=== PATIENT | male | born 1940 | race Caucasian/White ===

== ENCOUNTER → 2018-01-22 | Outpatient (CLI) | payer MEDICARE ==
[~2018-01-22] MED LIST: APIX5TAB PO; ATOR40TA78 PO; DILT240C77 PO; Digoxin PO; HYDR-3245 PO
[2018-01-22 11:53] LABS: BASOPHILS # (AUTO) 0.05 x10^3/uL (0-0.1); BASOPHILS % (AUTO) 1 % (0-1); EOSINOPHILS # (AUTO) 0.24 x10^3/uL (0-0.4); EOSINOPHILS % (AUTO) 3 % (1-7); LYMPHOCYTES # (AUTO) 2.42 x10^3/uL (1-3.4); LYMPHOCYTES % (AUTO) 25 % (22-44); MD NO; MEAN CORPUSCULAR HEMOGLOBIN 32.8 pg (27.5-34.5); MEAN CORPUSCULAR HGB CONC 34.3 g/dL (33.2-36.2); MEAN CORPUSCULAR VOLUME 95.7 fL (81-97); MEAN PLATELET VOLUME 8.7 fL (7.4-10.4); MONOCYTES # (AUTO) 0.92 x10^3/uL (0.2-0.8); MONOCYTES % (AUTO) 10 % (2-9); NEUTROPHILS % (AUTO) 62 % (42-75); PLATELET COUNT 173 x10^3/uL (130-400); RED BLOOD COUNT 5.18 x10^6/uL (4.38-5.82); RED CELL DISTRIBUTION WIDTH 13.8 % (9.4-14.8)
[2018-01-22 12:01] LABS: CHLORIDE 106 mmol/L (98-107)
[2018-01-22 12:14] LABS: ALANINE AMINOTRANSFERASE 40 U/L (12-78); ALBUMIN 3.9 g/dL (3.4-5.0); ALKALINE PHOSPHATASE 81 U/L (45-117); ANION GAP 9 mmol/L (5-15); BILIRUBIN,TOTAL 0.9 mg/dL (0.2-1.0); CALCIUM 8.5 mg/dL (8.5-10.1); CREATININE 0.79 mg/dL (0.7-1.3); TOTAL PROTEIN 7.6 g/dL (6.4-8.2)
== END | disposition home or self-care (01) ==
LOC: STAR 10:38
PROVIDERS: ATTEND Surgery
DX: Z01.818 Encounter for other preprocedural examination (principal); I48.91 Unspecified atrial fibrillation; I71.4 Abdominal aortic aneurysm, without rupture; I25.2 Old myocardial infarction
CPT/HCPCS: 36415; 80053; 85025; 93005

== ENCOUNTER → 2018-04-17 | Outpatient (CLI) | payer MEDICARE ==
[~2018-04-17] MED LIST changes: +ASPI81TA45 PO; +CARV6.2512 PO; +CIPR500T87 PO; +DIGO250T PO; +LISI5TAB7 PO; +OMNIPAQUE 350 MG/ML, 150 ML BOTTLE ONE; +TAMS-11 PO
[2018-04-17 14:28] LABS: CREATININE 1.78 mg/dL (0.7-1.3)
== END | disposition home or self-care (01) ==
LOC: RAD 13:37
PROVIDERS: ATTEND Surgery
DX: I71.4 Abdominal aortic aneurysm, without rupture (principal); J90 Pleural effusion, not elsewhere classified; K57.30 Diverticulosis of large intestine without perforation or abscess without bleeding; N28.1 Cyst of kidney, acquired; J98.11 Atelectasis
CPT/HCPCS: 36415; 75635; 82565; Q9967

== ENCOUNTER 2018-04-22 13:33 | Inpatient (IN) | payer MEDICARE ==
[~2018-04-22] VITALS: Ht 170.2 cm; Wt 84.3 kg
[~2018-04-22 13:33] MED LIST changes: -OMNIPAQUE 350 MG/ML, 150 ML BOTTLE ONE
--- NOTE | 2018-04-22 13:52 | NUR ---
PT REPORTS BEING SOB, BEING WEAK, YESTERDAY PT FELL AND HIT HEAD ON THE WALL WHILE GETTING ON THE TOILET YESTERDAY (HEMATOMA ON LEFT FOREHEAD) DENIES LOSS OF CONSCIOUSNESS. REPORTS THAT HE HAS A COLD AND HAS BACK PAIN. PT IS CONNECTED TO THE MONITOR. CALL LIGHT WITHIN REACH. AT BEDSIDE.
--- NOTE | 2018-04-22 14:13 | NUR ---
IV PLACED, BLOOD DRAWN AND SENT TO THE LAB. IV FLUIDS RUNNING.
[2018-04-22 14:19] LABS: BASOPHILS # (AUTO) 0.02 x10^3/uL (0-0.1); BASOPHILS % (AUTO) 0 % (0-1); EOSINOPHILS # (AUTO) 0.16 x10^3/uL (0-0.4); EOSINOPHILS % (AUTO) 4 % (1-7); LYMPHOCYTES # (AUTO) 1.13 x10^3/uL (1-3.4); LYMPHOCYTES % (AUTO) 24 % (22-44); MD NO; MEAN CORPUSCULAR HEMOGLOBIN 30.4 pg (27.5-34.5); MEAN CORPUSCULAR HGB CONC 32.4 g/dL (33.2-36.2); MEAN CORPUSCULAR VOLUME 93.8 fL (81-97); MEAN PLATELET VOLUME 8.9 fL (7.4-10.4); MONOCYTES # (AUTO) 0.69 x10^3/uL (0.2-0.8); MONOCYTES % (AUTO) 15 % (2-9); NEUTROPHILS # (AUTO) 2.69 x10^3/uL (1.8-6.8); NEUTROPHILS % (AUTO) 57 % (42-75); PLATELET COUNT 163 x10^3/uL (130-400); RED BLOOD COUNT 3.37 x10^6/uL (4.38-5.82); RED CELL DISTRIBUTION WIDTH 18.1 % (9.4-14.8)
[2018-04-22 14:29] LABS: ALANINE AMINOTRANSFERASE 35 U/L (12-78); ALBUMIN 3.5 g/dL (3.4-5.0); ANION GAP 9 mmol/L (5-15); CALCIUM 8.6 mg/dL (8.5-10.1); CHLORIDE 106 mmol/L (98-107); INTERNATIONAL NORMALIZED RATIO 1.35 (0.93-1.1)
[2018-04-22] MEDS ORDERED: SODIUM CHLORIDE FLUSH 10ML SYR IVF ONE (14:30)
[2018-04-22] MEDS ORDERED: SODIUM CHLORIDE 0.9% 1,000ML IVBOLUS ONE ×2 (14:30→15:00)
[2018-04-22 14:34] LABS: ALKALINE PHOSPHATASE 93 U/L (45-117); BILIRUBIN,TOTAL 0.6 mg/dL (0.2-1.0); CREATININE 1.94 mg/dL (0.7-1.3)
--- NOTE | 2018-04-22 14:57 | NUR ---
INFORMED MD AFTER 1L NS PTS BP IS 89/66, HR RANGING FROM 110 TO 132. PER MD GIVEN PT 1MORE LITER OF NS.
--- NOTE | 2018-04-22 16:12 | NUR ---
HOSPITALIST AT BEDSIDE.
[2018-04-22] MEDS ORDERED: hydrALAzine 20 MG/ML, 1ML IVPush PRN (16:30)
[2018-04-22] MEDS ORDERED: PHARMACY MAY ADJ FOR RENAL FX MC PRN (16:30)
[2018-04-22] MEDS ORDERED: BISACODYL 10 MG SUPP PR PRN (16:30)
[2018-04-22] MEDS ORDERED: ACETAMINOPHEN 325 MG TABLET PO PRN (16:30)
--- NOTE | 2018-04-22 16:30 | NUR ---
DR LOPEZ AWARE OF IMPROVED BLOOD PRESSURE AND LABETOLOL TO BE HELD AT THIS TIME
--- NOTE | 2018-04-22 17:00 | NUR ---
REPORT GIVEN TO YI AMATO.
[2018-04-22 17:06] LABS: TROPONIN I 0.235 ng/mL (0.000-0.045)
[2018-04-22 17:11] LABS: HEMOGLOBIN A1C 6.5 % (4.2-6.3)
[2018-04-22] MEDS ORDERED: ALBUTEROL/IPRATROPIUM 2.5MG/0.5MG, 3 ML ONE (17:12)
[2018-04-22] MEDS: ALBUTEROL/IPRATROPIUM 2.5MG/0.5MG, 3 ML NPPB SCH (17:26)
[2018-04-22 17:34] VITALS: BP 91/61
[2018-04-22] MEDS ORDERED: CARVEDILOL 6.25 MG TABLET PO SCH (18:00)
[2018-04-22 18:51] VITALS: BP 105/73
[2018-04-22 19:45] LABS: MICROSCOPIC INDICATED
[2018-04-22 19:58] LABS: CULTURE INDICATED? NO
[2018-04-22] MEDS ORDERED: POTASSIUM CHLORIDE 10 MEQ TABLET.ER PO ONE (20:00)
[2018-04-22] MEDS ORDERED: FUROSEMIDE 40 MG/4 ML IV ONE (20:00)
[2018-04-22] MEDS: APIXABAN 2.5 MG TABLET PO SCH (20:07)
[2018-04-22] MEDS: ATORVASTATIN 40 MG TABLET PO SCH (20:08)
[2018-04-22] MEDS ORDERED: FUROSEMIDE 20 MG TABLET PO SCH (21:00)
[2018-04-22 22:57] LABS: TROPONIN I 0.226 ng/mL (0.000-0.045)
[2018-04-23] VITALS (11 sets, daily range): BP systolic 75–103; BP diastolic 33–73
[2018-04-23] MEDS: ASPIRIN 81 MG TABLET EC PO SCH (05:30)
[2018-04-23 06:04] LABS: BASOPHILS # (AUTO) 0.02 x10^3/uL (0-0.1); BASOPHILS % (AUTO) 0 % (0-1); EOSINOPHILS % (AUTO) 4 % (1-7); LYMPHOCYTES # (AUTO) 1.72 x10^3/uL (1-3.4); LYMPHOCYTES % (AUTO) 35 % (22-44); MD NO; MEAN CORPUSCULAR HEMOGLOBIN 31.4 pg (27.5-34.5); MEAN CORPUSCULAR HGB CONC 33.4 g/dL (33.2-36.2); MEAN CORPUSCULAR VOLUME 94.2 fL (81-97); MEAN PLATELET VOLUME 9.1 fL (7.4-10.4); MONOCYTES # (AUTO) 0.74 x10^3/uL (0.2-0.8); MONOCYTES % (AUTO) 15 % (2-9); NEUTROPHILS # (AUTO) 2.22 x10^3/uL (1.8-6.8); NEUTROPHILS % (AUTO) 45 % (42-75); PLATELET COUNT 135 x10^3/uL (130-400); RED BLOOD COUNT 2.77 x10^6/uL (4.38-5.82); RED CELL DISTRIBUTION WIDTH 17.7 % (9.4-14.8)
[2018-04-23 06:09] LABS: ALANINE AMINOTRANSFERASE 42 U/L (12-78); ALBUMIN 2.7 g/dL (3.4-5.0); ANION GAP 8 mmol/L (5-15); CHLORIDE 106 mmol/L (98-107); CREATININE 1.63 mg/dL (0.7-1.3)
[2018-04-23 06:13] LABS: ALKALINE PHOSPHATASE 86 U/L (45-117); BILIRUBIN,TOTAL 0.5 mg/dL (0.2-1.0); CHOLESTEROL, TOTAL 98 mg/dL (140-239); HDL CHOL % 34 % (26-37); HDL CHOLESTEROL (DIRECT) 33 mg/dL (40-60); LDL CHOLESTEROL,CALCULATED 43 mg/dL (54-169); LDL/HDL RATIO 1.3 (0.5-3.0); TOTAL PROTEIN 5.7 g/dL (6.4-8.2); TRIGLYCERIDES 112 mg/dL (50-200); VLDL CHOLESTEROL 22 mg/dL (0-25)
[2018-04-23] MEDS: ALBUTEROL/IPRATROPIUM 2.5MG/0.5MG, 3 ML NPPB SCH ×4 (07:49→20:00)
[2018-04-23] MEDS: FUROSEMIDE 20 MG/2 ML IV SCH ×2 (08:00→09:00)
[2018-04-23] MEDS: APIXABAN 2.5 MG TABLET PO SCH ×2 (08:32→22:02)
[2018-04-23] MEDS ORDERED: AMIODARONE 150 MG in DEXTROSE 5% 100 ML IV ONE (13:00)
[2018-04-23] MEDS ORDERED: AMIODARONE 900 MG in DEXTROSE 5% 482 ML IV PRN (13:00)
[2018-04-23] MEDS ORDERED: FILTER 0.22 MICRON FOR AMIODARONE IV PRN (13:30)
[2018-04-23] MEDS ORDERED: SODIUM CHLORIDE 0.9% 250 ML IV SCH (15:30)
[2018-04-23] MEDS ORDERED: DIGOXIN 0.25 MG/ML, 2ML IVPush ONE (18:30)
[2018-04-23] MEDS: ATORVASTATIN 40 MG TABLET PO SCH (22:02)
[2018-04-24 02:32] VITALS: BP 89/56
[2018-04-24] MEDS: ASPIRIN 81 MG TABLET EC PO SCH (05:59)
[2018-04-24] MEDS: ALBUTEROL/IPRATROPIUM 2.5MG/0.5MG, 3 ML NPPB SCH ×4 (07:45→20:00)
[2018-04-24 07:49] VITALS: BP 94/63
[2018-04-24 08:40] LABS: BASOPHILS # (AUTO) 0.02 x10^3/uL (0-0.1); BASOPHILS % (AUTO) 0 % (0-1); EOSINOPHILS # (AUTO) 0.21 x10^3/uL (0-0.4); EOSINOPHILS % (AUTO) 4 % (1-7); LYMPHOCYTES # (AUTO) 1.71 x10^3/uL (1-3.4); LYMPHOCYTES % (AUTO) 33 % (22-44); MD NO; MEAN CORPUSCULAR HGB CONC 33.1 g/dL (33.2-36.2); MEAN CORPUSCULAR VOLUME 93.6 fL (81-97); MEAN PLATELET VOLUME 9.1 fL (7.4-10.4); MONOCYTES # (AUTO) 0.83 x10^3/uL (0.2-0.8); MONOCYTES % (AUTO) 16 % (2-9); NEUTROPHILS # (AUTO) 2.46 x10^3/uL (1.8-6.8); NEUTROPHILS % (AUTO) 47 % (42-75); PLATELET COUNT 142 x10^3/uL (130-400); RED BLOOD COUNT 2.97 x10^6/uL (4.38-5.82); RED CELL DISTRIBUTION WIDTH 18.1 % (9.4-14.8)
[2018-04-24 08:54] LABS: ANION GAP 8 mmol/L (5-15); CHLORIDE 100 mmol/L (98-107)
[2018-04-24] MEDS: APIXABAN 2.5 MG TABLET PO SCH ×2 (09:00→21:21)
[2018-04-24 09:01] LABS: CREATININE 1.66 mg/dL (0.7-1.3)
[2018-04-24] MEDS: MIDODRINE 5 MG TABLET PO SCH ×3 (09:29→21:21)
[2018-04-24 11:57] VITALS: BP 93/60
[2018-04-24] MEDS ORDERED: AMIODARONE 900 MG in DEXTROSE 5% 482 ML IV PRN (12:00)
[2018-04-24] MEDS ORDERED: AMIODARONE 900 MG in DEXTROSE 5% 482 ML IV ONE (12:00)
[2018-04-24] MEDS: DIGOXIN 0.125 MG TABLET PO SCH (12:01)
[2018-04-24] MEDS: AMIODARONE 200 MG TABLET PO SCH ×2 (12:01→21:21)
[2018-04-24] MEDS: FUROSEMIDE 20 MG/2 ML IV SCH ×2 (12:01→21:21)
[2018-04-24 13:00] VITALS: BP 94/57
[2018-04-24 14:00] LABS: OCCULT BLOOD NEGATIVE (NEGATIVE)
[2018-04-24 19:34] VITALS: BP 101/58
[2018-04-24] MEDS: MELATONIN 5 MG TABLET PO SCH (21:21)
[2018-04-24] MEDS: ATORVASTATIN 40 MG TABLET PO SCH (21:21)
[2018-04-25 01:59] VITALS: BP 92/58
[2018-04-25] MEDS: ASPIRIN 81 MG TABLET EC PO SCH (05:30)
[2018-04-25 06:04] LABS: OCCULT BLOOD NEGATIVE (NEGATIVE)
[2018-04-25 06:53] VITALS: BP 92/56
[2018-04-25] MEDS: ALBUTEROL/IPRATROPIUM 2.5MG/0.5MG, 3 ML NPPB SCH ×4 (07:56→20:00)
[2018-04-25 08:43] LABS: CLOSTRIDIUM DIFFICILE ANTIGEN NEGATIVE; CLOSTRIDIUM DIFFICILE TOXIN NEGATIVE (Negative)
[2018-04-25] MEDS: FUROSEMIDE 20 MG/2 ML IV SCH ×2 (08:51→18:05)
[2018-04-25] MEDS: DIGOXIN 0.125 MG TABLET PO SCH (08:52)
[2018-04-25] MEDS: APIXABAN 2.5 MG TABLET PO SCH ×2 (08:52→20:08)
[2018-04-25] MEDS: AMIODARONE 200 MG TABLET PO SCH ×2 (08:52→20:08)
[2018-04-25] MEDS: MIDODRINE 5 MG TABLET PO SCH ×3 (08:52→21:47)
[2018-04-25 09:23] LABS: ANION GAP 9 mmol/L (5-15); CALCIUM 8.2 mg/dL (8.5-10.1); CHLORIDE 104 mmol/L (98-107); CREATININE 1.75 mg/dL (0.7-1.3)
[2018-04-25 12:49] VITALS: BP 94/55
[2018-04-25 18:03] VITALS: BP 110/72
[2018-04-25 19:43] VITALS: BP 122/67
[2018-04-25] MEDS: ATORVASTATIN 40 MG TABLET PO SCH (20:08)
[2018-04-25] MEDS: MELATONIN 5 MG TABLET PO SCH (21:47)
[2018-04-26 01:12] VITALS: BP 119/73
[2018-04-26] MEDS: ASPIRIN 81 MG TABLET EC PO SCH (06:05)
[2018-04-26 06:12] LABS: ANION GAP 7 mmol/L (5-15); CALCIUM 8.4 mg/dL (8.5-10.1); CHLORIDE 107 mmol/L (98-107); CREATININE 1.78 mg/dL (0.7-1.3)
[2018-04-26] MEDS: ALBUTEROL/IPRATROPIUM 2.5MG/0.5MG, 3 ML NPPB SCH ×4 (07:35→19:47)
[2018-04-26 07:55] VITALS: BP 113/66
[2018-04-26] MEDS: FUROSEMIDE 20 MG/2 ML IV SCH ×2 (07:59→16:35)
[2018-04-26] MEDS: SPIRONOLACTONE 25 MG TABLET PO SCH (08:00)
[2018-04-26] MEDS: AMIODARONE 200 MG TABLET PO SCH ×2 (08:00→20:45)
[2018-04-26] MEDS: APIXABAN 2.5 MG TABLET PO SCH (08:00)
[2018-04-26] MEDS: DIGOXIN 0.125 MG TABLET PO SCH (08:00)
[2018-04-26] MEDS: MIDODRINE 5 MG TABLET PO SCH ×3 (08:03→20:45)
[2018-04-26] MEDS: TAMSULOSIN 0.4 MG CAP.ER.24H PO SCH (11:01)
[2018-04-26 12:18] VITALS: BP 122/84
[2018-04-26 16:34] VITALS: BP 134/89
[2018-04-26 19:17] VITALS: BP 125/74
[2018-04-26] MEDS: APIXABAN 5 MG TABLET PO SCH (20:44)
[2018-04-26] MEDS: ATORVASTATIN 40 MG TABLET PO SCH (20:44)
[2018-04-26] MEDS: POLYETHYLENE GLYCOL 17 GM PACKET PO PRN (20:44)
[2018-04-26] MEDS: MELATONIN 5 MG TABLET PO SCH (20:45)
[2018-04-26] MEDS: DOCUSATE 100 MG CAPSULE PO PRN (20:45)
[2018-04-27 04:42] VITALS: BP 132/80
[2018-04-27 05:18] LABS: BASOPHILS # (AUTO) 0.04 x10^3/uL (0-0.1); BASOPHILS % (AUTO) 1 % (0-1); EOSINOPHILS % (AUTO) 4 % (1-7); LYMPHOCYTES % (AUTO) 26 % (22-44); MD NO; MEAN CORPUSCULAR HEMOGLOBIN 32.2 pg (27.5-34.5); MEAN CORPUSCULAR HGB CONC 34.2 g/dL (33.2-36.2); MEAN PLATELET VOLUME 8.5 fL (7.4-10.4); MONOCYTES # (AUTO) 0.93 x10^3/uL (0.2-0.8); MONOCYTES % (AUTO) 13 % (2-9); NEUTROPHILS # (AUTO) 4.11 x10^3/uL (1.8-6.8); NEUTROPHILS % (AUTO) 57 % (42-75); PLATELET COUNT 183 x10^3/uL (130-400); RED BLOOD COUNT 3.05 x10^6/uL (4.38-5.82); RED CELL DISTRIBUTION WIDTH 19.6 % (9.4-14.8)
[2018-04-27 05:24] LABS: ANION GAP 7 mmol/L (5-15); CALCIUM 8.5 mg/dL (8.5-10.1); CHLORIDE 106 mmol/L (98-107); CREATININE 1.51 mg/dL (0.7-1.3)
[2018-04-27] MEDS: ASPIRIN 81 MG TABLET EC PO SCH (05:47)
[2018-04-27] MEDS: ALBUTEROL/IPRATROPIUM 2.5MG/0.5MG, 3 ML NPPB SCH ×4 (07:08→20:00)
[2018-04-27 08:44] VITALS: BP 111/63
[2018-04-27] MEDS: SPIRONOLACTONE 25 MG TABLET PO SCH (10:27)
[2018-04-27] MEDS: FUROSEMIDE 20 MG/2 ML IV SCH ×2 (10:27→16:46)
[2018-04-27] MEDS: DIGOXIN 0.125 MG TABLET PO SCH (10:27)
[2018-04-27] MEDS: TAMSULOSIN 0.4 MG CAP.ER.24H PO SCH (10:27)
[2018-04-27] MEDS: AMIODARONE 200 MG TABLET PO SCH ×2 (10:28→20:41)
[2018-04-27] MEDS: APIXABAN 5 MG TABLET PO SCH ×2 (10:28→20:42)
[2018-04-27] MEDS: MIDODRINE 5 MG TABLET PO SCH ×3 (10:28→20:41)
[2018-04-27 12:45] VITALS: BP 118/78
[2018-04-27] MEDS: POLYETHYLENE GLYCOL 17 GM PACKET PO PRN (12:52)
[2018-04-27] MEDS: DOCUSATE 100 MG CAPSULE PO PRN (12:52)
[2018-04-27 16:44] VITALS: BP 122/73
[2018-04-27 18:34] VITALS: BP 113/69
[2018-04-27] MEDS: MELATONIN 5 MG TABLET PO SCH (20:41)
[2018-04-27] MEDS: ATORVASTATIN 40 MG TABLET PO SCH (20:42)
[2018-04-28 01:08] VITALS: BP 113/74
[2018-04-28] MEDS: ASPIRIN 81 MG TABLET EC PO SCH (05:15)
[2018-04-28 05:30] LABS: BASOPHILS # (AUTO) 0.07 x10^3/uL (0-0.1); BASOPHILS % (AUTO) 1 % (0-1); EOSINOPHILS # (AUTO) 0.27 x10^3/uL (0-0.4); EOSINOPHILS % (AUTO) 3 % (1-7); LYMPHOCYTES # (AUTO) 1.75 x10^3/uL (1-3.4); LYMPHOCYTES % (AUTO) 22 % (22-44); MD NO; MEAN CORPUSCULAR HEMOGLOBIN 32.1 pg (27.5-34.5); MEAN CORPUSCULAR VOLUME 94.4 fL (81-97); MEAN PLATELET VOLUME 8.1 fL (7.4-10.4); MONOCYTES # (AUTO) 0.96 x10^3/uL (0.2-0.8); MONOCYTES % (AUTO) 12 % (2-9); NEUTROPHILS # (AUTO) 5.05 x10^3/uL (1.8-6.8); NEUTROPHILS % (AUTO) 62 % (42-75); PLATELET COUNT 174 x10^3/uL (130-400); RED BLOOD COUNT 3.06 x10^6/uL (4.38-5.82); RED CELL DISTRIBUTION WIDTH 19.6 % (9.4-14.8)
[2018-04-28 05:39] LABS: ANION GAP 7 mmol/L (5-15); CALCIUM 8.7 mg/dL (8.5-10.1); CHLORIDE 105 mmol/L (98-107)
[2018-04-28] MEDS: ALBUTEROL/IPRATROPIUM 2.5MG/0.5MG, 3 ML NPPB SCH ×4 (07:26→19:15)
[2018-04-28 07:49] VITALS: BP 109/70
[2018-04-28] MEDS ORDERED: CARVEDILOL 3.125 MG TABLET PO SCH (08:00)
[2018-04-28] MEDS: APIXABAN 5 MG TABLET PO SCH ×2 (09:33→22:01)
[2018-04-28] MEDS: AMIODARONE 200 MG TABLET PO SCH ×2 (09:33→22:01)
[2018-04-28] MEDS: SPIRONOLACTONE 25 MG TABLET PO SCH (09:34)
[2018-04-28] MEDS: TAMSULOSIN 0.4 MG CAP.ER.24H PO SCH (09:34)
[2018-04-28] MEDS: DIGOXIN 0.125 MG TABLET PO SCH (09:34)
[2018-04-28] MEDS: POLYETHYLENE GLYCOL 17 GM PACKET PO PRN (09:56)
[2018-04-28] MEDS: DOCUSATE 100 MG CAPSULE PO PRN (09:56)
[2018-04-28] MEDS: FUROSEMIDE 40 MG TABLET PO SCH (09:56)
[2018-04-28] MEDS ORDERED: CARVEDILOL 3.125 MG TABLET PO ONE ×2 (10:00→12:00)
[2018-04-28] MEDS ORDERED: MIDODRINE 5 MG TABLET PO ONE (10:00)
[2018-04-28 12:38] VITALS: BP 144/94
[2018-04-28 17:30] VITALS: BP 120/75
[2018-04-28] MEDS: CARVEDILOL 6.25 MG TABLET PO SCH (17:42)
[2018-04-28] MEDS: MIDODRINE 5 MG TABLET PO SCH ×2 (17:42→22:00)
[2018-04-28] MEDS: MELATONIN 5 MG TABLET PO SCH (21:00)
[2018-04-28 21:50] VITALS: BP 122/77
[2018-04-28] MEDS: TEMAZEPAM 15 MG CAPSULE PO PRN (22:01)
[2018-04-28] MEDS: ATORVASTATIN 40 MG TABLET PO SCH (22:01)
[2018-04-29] VITALS (7 sets, daily range): BP systolic 88–137; BP diastolic 57–76
[2018-04-29] MEDS: CARVEDILOL 6.25 MG TABLET PO SCH ×2 (06:14→17:34)
[2018-04-29 06:16] LABS: BASOPHILS # (AUTO) 0.02 x10^3/uL (0-0.1); BASOPHILS % (AUTO) 0 % (0-1); EOSINOPHILS # (AUTO) 0.21 x10^3/uL (0-0.4); EOSINOPHILS % (AUTO) 2 % (1-7); LYMPHOCYTES # (AUTO) 1.89 x10^3/uL (1-3.4); LYMPHOCYTES % (AUTO) 15 % (22-44); MD NO; MEAN CORPUSCULAR HEMOGLOBIN 31.9 pg (27.5-34.5); MEAN CORPUSCULAR HGB CONC 33.7 g/dL (33.2-36.2); MEAN CORPUSCULAR VOLUME 94.7 fL (81-97); MEAN PLATELET VOLUME 8.3 fL (7.4-10.4); MONOCYTES # (AUTO) 1.31 x10^3/uL (0.2-0.8); MONOCYTES % (AUTO) 11 % (2-9); NEUTROPHILS # (AUTO) 8.83 x10^3/uL (1.8-6.8); NEUTROPHILS % (AUTO) 72 % (42-75); PLATELET COUNT 174 x10^3/uL (130-400); RED BLOOD COUNT 3.09 x10^6/uL (4.38-5.82); RED CELL DISTRIBUTION WIDTH 19.8 % (9.4-14.8)
[2018-04-29 06:27] LABS: ANION GAP 7 mmol/L (5-15); CALCIUM 8.6 mg/dL (8.5-10.1); CHLORIDE 102 mmol/L (98-107)
[2018-04-29 06:29] LABS: CREATININE 1.46 mg/dL (0.7-1.3)
[2018-04-29] MEDS: ALBUTEROL/IPRATROPIUM 2.5MG/0.5MG, 3 ML NPPB SCH ×4 (07:00→22:00)
[2018-04-29] MEDS: AMIODARONE 200 MG TABLET PO SCH ×2 (09:55→20:39)
[2018-04-29] MEDS: DIGOXIN 0.125 MG TABLET PO SCH (09:57)
[2018-04-29] MEDS: FUROSEMIDE 40 MG TABLET PO SCH (09:58)
[2018-04-29] MEDS: SPIRONOLACTONE 25 MG TABLET PO SCH (09:58)
[2018-04-29] MEDS: APIXABAN 5 MG TABLET PO SCH ×2 (09:59→20:40)
[2018-04-29] MEDS: TAMSULOSIN 0.4 MG CAP.ER.24H PO SCH (10:00)
[2018-04-29] MEDS: DOCUSATE 100 MG CAPSULE PO PRN (10:01)
[2018-04-29] MEDS: MIDODRINE 5 MG TABLET PO SCH ×3 (10:01→20:39)
[2018-04-29] MEDS: POLYETHYLENE GLYCOL 17 GM PACKET PO PRN (10:02)
[2018-04-29] MEDS: LISINOPRIL 5 MG TABLET PO SCH (12:07)
[2018-04-29] MEDS: TEMAZEPAM 15 MG CAPSULE PO PRN (20:39)
[2018-04-29] MEDS: ATORVASTATIN 40 MG TABLET PO SCH (20:39)
[2018-04-29] MEDS: MELATONIN 5 MG TABLET PO SCH (20:40)
[2018-04-30 03:44] VITALS: BP 99/63
[2018-04-30 04:56] VITALS: BP 98/58
[2018-04-30 06:04] LABS: ANION GAP 8 mmol/L (5-15); CALCIUM 8.1 mg/dL (8.5-10.1); CHLORIDE 98 mmol/L (98-107)
[2018-04-30 06:05] LABS: MEAN CORPUSCULAR HEMOGLOBIN 31.2 pg (27.5-34.5); MEAN CORPUSCULAR HGB CONC 32.6 g/dL (33.2-36.2); MEAN CORPUSCULAR VOLUME 95.6 fL (81-97); MEAN PLATELET VOLUME 8.6 fL (7.4-10.4); PLATELET COUNT 172 x10^3/uL (130-400); RED BLOOD COUNT 2.88 x10^6/uL (4.38-5.82); RED CELL DISTRIBUTION WIDTH 19.8 % (9.4-14.8)
[2018-04-30 06:21] LABS: CREATININE 1.65 mg/dL (0.7-1.3)
[2018-04-30 06:30] LABS: BASOPHILS # (AUTO) 0.03 x10^3/uL (0-0.1); BASOPHILS % (AUTO) 0 % (0-1); EOSINOPHILS # (AUTO) 0.32 x10^3/uL (0-0.4); EOSINOPHILS % (AUTO) 3 % (1-7); LYMPHOCYTES % (AUTO) 22 % (22-44); MD SCAN; MONOCYTES # (AUTO) 1.01 x10^3/uL (0.2-0.8); MONOCYTES % (AUTO) 10 % (2-9); NEUTROPHILS # (AUTO) 6.35 x10^3/uL (1.8-6.8); NEUTROPHILS % (AUTO) 65 % (42-75)
[2018-04-30] MEDS: ALBUTEROL/IPRATROPIUM 2.5MG/0.5MG, 3 ML NPPB SCH ×4 (07:10→19:40)
[2018-04-30 07:53] VITALS: BP 106/68
[2018-04-30] MEDS: SPIRONOLACTONE 25 MG TABLET PO SCH (09:10)
[2018-04-30] MEDS: MIDODRINE 5 MG TABLET PO SCH ×3 (09:10→20:43)
[2018-04-30] MEDS: APIXABAN 5 MG TABLET PO SCH ×2 (09:11→20:44)
[2018-04-30] MEDS: CARVEDILOL 6.25 MG TABLET PO SCH ×2 (09:12→18:26)
[2018-04-30] MEDS: DIGOXIN 0.125 MG TABLET PO SCH (09:13)
[2018-04-30] MEDS: FUROSEMIDE 40 MG TABLET PO SCH (09:13)
[2018-04-30] MEDS: AMIODARONE 200 MG TABLET PO SCH (09:14)
[2018-04-30] MEDS: TAMSULOSIN 0.4 MG CAP.ER.24H PO SCH (09:15)
[2018-04-30] MEDS: LISINOPRIL 5 MG TABLET PO SCH (09:16)
[2018-04-30 16:06] VITALS: BP 99/65
[2018-04-30 18:23] VITALS: BP 104/65
[2018-04-30 19:12] LABS: OCCULT BLOOD NEGATIVE (NEGATIVE)
[2018-04-30 20:03] VITALS: BP 111/72
[2018-04-30] MEDS: MELATONIN 5 MG TABLET PO SCH (20:43)
[2018-04-30] MEDS: ATORVASTATIN 40 MG TABLET PO SCH (20:43)
[2018-04-30 20:58] LABS: CHLORIDE,URINE RANDOM 59 mmol/L; POTASSIUM,URINE RANDOM 35 mmol/L; SODIUM,URINE RANDOM 45 mmol/L
[2018-05-01 00:58] VITALS: BP 90/55
[2018-05-01 05:44] VITALS: BP 110/71
[2018-05-01] MEDS: CARVEDILOL 6.25 MG TABLET PO SCH ×2 (05:45→15:44)
[2018-05-01 07:14] LABS: MEAN CORPUSCULAR HEMOGLOBIN 31.5 pg (27.5-34.5); MEAN CORPUSCULAR HGB CONC 33.4 g/dL (33.2-36.2); MEAN CORPUSCULAR VOLUME 94.2 fL (81-97); MEAN PLATELET VOLUME 8.1 fL (7.4-10.4); PLATELET COUNT 155 x10^3/uL (130-400); RED BLOOD COUNT 2.86 x10^6/uL (4.38-5.82); RED CELL DISTRIBUTION WIDTH 19.5 % (9.4-14.8)
[2018-05-01 07:17] LABS: ANION GAP 7 mmol/L (5-15); CALCIUM 7.8 mg/dL (8.5-10.1); CHLORIDE 95 mmol/L (98-107); CREATININE 1.78 mg/dL (0.7-1.3)
[2018-05-01] MEDS: ALBUTEROL/IPRATROPIUM 2.5MG/0.5MG, 3 ML NPPB SCH ×4 (07:20→19:19)
[2018-05-01 07:54] VITALS: BP 98/58
[2018-05-01 08:26] LABS: BASOPHILS # (AUTO) 0.02 x10^3/uL (0-0.1); BASOPHILS % (AUTO) 0 % (0-1); EOSINOPHILS # (AUTO) 0.18 x10^3/uL (0-0.4); EOSINOPHILS % (AUTO) 3 % (1-7); LYMPHOCYTES # (AUTO) 1.04 x10^3/uL (1-3.4); LYMPHOCYTES % (AUTO) 17 % (22-44); MD SCAN; MONOCYTES # (AUTO) 0.78 x10^3/uL (0.2-0.8); MONOCYTES % (AUTO) 12 % (2-9); NEUTROPHILS # (AUTO) 4.22 x10^3/uL (1.8-6.8); NEUTROPHILS % (AUTO) 68 % (42-75)
[2018-05-01] MEDS: MIDODRINE 5 MG TABLET PO SCH ×3 (09:18→21:43)
[2018-05-01] MEDS: FUROSEMIDE 40 MG TABLET PO SCH (09:18)
[2018-05-01] MEDS: TAMSULOSIN 0.4 MG CAP.ER.24H PO SCH (09:18)
[2018-05-01] MEDS: APIXABAN 5 MG TABLET PO SCH ×2 (09:18→21:42)
[2018-05-01] MEDS: LISINOPRIL 5 MG TABLET PO SCH (09:19)
[2018-05-01] MEDS: AMIODARONE 200 MG TABLET PO SCH ×2 (09:19→21:42)
[2018-05-01] MEDS: SPIRONOLACTONE 25 MG TABLET PO SCH (09:19)
[2018-05-01] MEDS: DIGOXIN 0.125 MG TABLET PO SCH (09:19)
[2018-05-01 10:42] LABS: OSMOLALITY,URINE 364 mOsm/kg (500-850)
[2018-05-01 12:15] VITALS: BP 107/65
[2018-05-01 18:30] VITALS: BP 100/62
[2018-05-01] MEDS: MELATONIN 5 MG TABLET PO SCH (21:42)
[2018-05-01] MEDS: ATORVASTATIN 40 MG TABLET PO SCH (21:42)
[2018-05-02 02:00] VITALS: BP 106/68
[2018-05-02 05:51] VITALS: BP 115/66
[2018-05-02] MEDS: CARVEDILOL 6.25 MG TABLET PO SCH ×2 (05:56→16:52)
[2018-05-02 06:19] LABS: BASOPHILS # (AUTO) 0.02 x10^3/uL (0-0.1); BASOPHILS % (AUTO) 0 % (0-1); EOSINOPHILS # (AUTO) 0.16 x10^3/uL (0-0.4); EOSINOPHILS % (AUTO) 3 % (1-7); LYMPHOCYTES # (AUTO) 1.09 x10^3/uL (1-3.4); LYMPHOCYTES % (AUTO) 20 % (22-44); MD NO; MEAN CORPUSCULAR HEMOGLOBIN 31.1 pg (27.5-34.5); MEAN CORPUSCULAR HGB CONC 32.9 g/dL (33.2-36.2); MEAN CORPUSCULAR VOLUME 94.4 fL (81-97); MEAN PLATELET VOLUME 8.4 fL (7.4-10.4); MONOCYTES # (AUTO) 0.83 x10^3/uL (0.2-0.8); MONOCYTES % (AUTO) 16 % (2-9); NEUTROPHILS # (AUTO) 3.23 x10^3/uL (1.8-6.8); NEUTROPHILS % (AUTO) 61 % (42-75); PLATELET COUNT 171 x10^3/uL (130-400); RED BLOOD COUNT 2.98 x10^6/uL (4.38-5.82); RED CELL DISTRIBUTION WIDTH 19.7 % (9.4-14.8)
[2018-05-02 06:32] LABS: CHLORIDE 96 mmol/L (98-107)
[2018-05-02 06:36] LABS: CALCIUM 8.2 mg/dL (8.5-10.1); CREATININE 1.91 mg/dL (0.7-1.3)
[2018-05-02] MEDS: ALBUTEROL/IPRATROPIUM 2.5MG/0.5MG, 3 ML NPPB SCH ×3 (06:40→21:00)
[2018-05-02] MEDS: FUROSEMIDE 40 MG TABLET PO SCH (07:31)
[2018-05-02 07:47] LABS: ANION GAP 8 mmol/L (5-15)
[2018-05-02 08:00] VITALS: BP 113/62
[2018-05-02] MEDS: TAMSULOSIN 0.4 MG CAP.ER.24H PO SCH (08:37)
[2018-05-02] MEDS: MIDODRINE 5 MG TABLET PO SCH ×3 (08:38→21:21)
[2018-05-02] MEDS: LISINOPRIL 5 MG TABLET PO SCH (08:38)
[2018-05-02] MEDS: APIXABAN 5 MG TABLET PO SCH ×2 (08:38→20:18)
[2018-05-02] MEDS: SPIRONOLACTONE 25 MG TABLET PO SCH (08:38)
[2018-05-02] MEDS: AMIODARONE 200 MG TABLET PO SCH ×2 (08:38→20:19)
[2018-05-02] MEDS: DIGOXIN 0.125 MG TABLET PO SCH (08:38)
[2018-05-02 14:00] VITALS: BP 103/62
[2018-05-02 19:48] VITALS: BP 98/58
[2018-05-02 19:50] VITALS: BP 102/58
[2018-05-02] MEDS: ATORVASTATIN 40 MG TABLET PO SCH (20:18)
[2018-05-02] MEDS: MELATONIN 5 MG TABLET PO SCH (20:18)
[2018-05-02] MEDS: SODIUM CHLORIDE 0.9% 1,000 ML IV SCH (20:39)
[2018-05-03 01:53] VITALS: BP 130/66
[2018-05-03] MEDS: CARVEDILOL 6.25 MG TABLET PO SCH ×2 (05:58→17:17)
[2018-05-03 06:08] LABS: BASOPHILS # (AUTO) 0.02 x10^3/uL (0-0.1); BASOPHILS % (AUTO) 0 % (0-1); EOSINOPHILS # (AUTO) 0.17 x10^3/uL (0-0.4); EOSINOPHILS % (AUTO) 2 % (1-7); LYMPHOCYTES # (AUTO) 1.43 x10^3/uL (1-3.4); LYMPHOCYTES % (AUTO) 21 % (22-44); MD NO; MEAN CORPUSCULAR HEMOGLOBIN 31.7 pg (27.5-34.5); MEAN CORPUSCULAR HGB CONC 34.1 g/dL (33.2-36.2); MEAN CORPUSCULAR VOLUME 92.9 fL (81-97); MEAN PLATELET VOLUME 8.1 fL (7.4-10.4); MONOCYTES # (AUTO) 0.88 x10^3/uL (0.2-0.8); MONOCYTES % (AUTO) 13 % (2-9); NEUTROPHILS # (AUTO) 4.39 x10^3/uL (1.8-6.8); NEUTROPHILS % (AUTO) 64 % (42-75); PLATELET COUNT 167 x10^3/uL (130-400); RED BLOOD COUNT 2.92 x10^6/uL (4.38-5.82); RED CELL DISTRIBUTION WIDTH 19.4 % (9.4-14.8)
[2018-05-03 06:15] LABS: ANION GAP 6 mmol/L (5-15); CALCIUM 7.9 mg/dL (8.5-10.1); CHLORIDE 96 mmol/L (98-107); CREATININE 2.04 mg/dL (0.7-1.3)
[2018-05-03] MEDS: ALBUTEROL/IPRATROPIUM 2.5MG/0.5MG, 3 ML NPPB SCH ×2 (07:10→19:50)
[2018-05-03 08:45] VITALS: BP 123/73
[2018-05-03] MEDS: APIXABAN 5 MG TABLET PO SCH ×2 (09:53→20:55)
[2018-05-03] MEDS: TAMSULOSIN 0.4 MG CAP.ER.24H PO SCH (09:53)
[2018-05-03] MEDS: LISINOPRIL 5 MG TABLET PO SCH (09:53)
[2018-05-03] MEDS: DIGOXIN 0.125 MG TABLET PO SCH (09:54)
[2018-05-03] MEDS: AMIODARONE 200 MG TABLET PO SCH ×2 (09:54→21:08)
[2018-05-03] MEDS: MIDODRINE 5 MG TABLET PO SCH ×3 (09:54→20:56)
[2018-05-03 11:27] LABS: CHLORIDE,URINE RANDOM < 10 mmol/L; POTASSIUM,URINE RANDOM 26 mmol/L; SODIUM,URINE RANDOM 20 mmol/L
[2018-05-03 11:39] LABS: OSMOLALITY,URINE 384 mOsm/kg (500-850)
[2018-05-03 15:02] VITALS: BP 110/66
[2018-05-03] MEDS: SODIUM CHLORIDE 0.9% 1,000 ML IV SCH (17:17)
[2018-05-03 18:39] VITALS: BP 100/65
[2018-05-03 20:53] VITALS: BP 106/72
[2018-05-03] MEDS: ATORVASTATIN 40 MG TABLET PO SCH (20:55)
[2018-05-03] MEDS: MELATONIN 5 MG TABLET PO SCH (21:08)
[2018-05-03] MEDS: TEMAZEPAM 15 MG CAPSULE PO PRN (21:08)
[2018-05-04 01:02] VITALS: BP 109/61
[2018-05-04 05:50] LABS: BASOPHILS # (AUTO) 0.01 x10^3/uL (0-0.1); BASOPHILS % (AUTO) 0 % (0-1); EOSINOPHILS % (AUTO) 3 % (1-7); LYMPHOCYTES # (AUTO) 1.54 x10^3/uL (1-3.4); LYMPHOCYTES % (AUTO) 21 % (22-44); MD NO; MEAN CORPUSCULAR HEMOGLOBIN 30.6 pg (27.5-34.5); MEAN CORPUSCULAR HGB CONC 32.9 g/dL (33.2-36.2); MEAN PLATELET VOLUME 8.3 fL (7.4-10.4); MONOCYTES # (AUTO) 1.02 x10^3/uL (0.2-0.8); MONOCYTES % (AUTO) 14 % (2-9); NEUTROPHILS # (AUTO) 4.62 x10^3/uL (1.8-6.8); NEUTROPHILS % (AUTO) 63 % (42-75); PLATELET COUNT 181 x10^3/uL (130-400); RED BLOOD COUNT 2.88 x10^6/uL (4.38-5.82); RED CELL DISTRIBUTION WIDTH 19.7 % (9.4-14.8)
[2018-05-04 05:56] LABS: ANION GAP 8 mmol/L (5-15); CALCIUM 7.8 mg/dL (8.5-10.1); CHLORIDE 96 mmol/L (98-107); CREATININE 2.23 mg/dL (0.7-1.3)
[2018-05-04] MEDS: CARVEDILOL 6.25 MG TABLET PO SCH ×2 (06:01→17:44)
[2018-05-04 07:25] VITALS: BP 115/64
[2018-05-04] MEDS: ALBUTEROL/IPRATROPIUM 2.5MG/0.5MG, 3 ML NPPB SCH ×2 (09:00→21:30)
[2018-05-04] MEDS: LISINOPRIL 5 MG TABLET PO SCH (09:57)
[2018-05-04] MEDS: DIGOXIN 0.125 MG TABLET PO SCH (09:57)
[2018-05-04] MEDS: MIDODRINE 5 MG TABLET PO SCH ×3 (09:57→20:04)
[2018-05-04] MEDS: TAMSULOSIN 0.4 MG CAP.ER.24H PO SCH (09:57)
[2018-05-04] MEDS: AMIODARONE 200 MG TABLET PO SCH ×2 (09:58→20:04)
[2018-05-04] MEDS: APIXABAN 5 MG TABLET PO SCH ×2 (09:58→20:04)
[2018-05-04] MEDS: SODIUM CHLORIDE 0.9% 1,000 ML IV SCH (10:53)
[2018-05-04 14:45] VITALS: BP 108/68
[2018-05-04 19:32] VITALS: BP 116/61
[2018-05-04] MEDS: MELATONIN 5 MG TABLET PO SCH (20:04)
[2018-05-04] MEDS: ATORVASTATIN 40 MG TABLET PO SCH (20:04)
[2018-05-05 01:30] VITALS: BP 108/54
[2018-05-05 04:17] LABS: BASOPHILS # (AUTO) 0.02 x10^3/uL (0-0.1); BASOPHILS % (AUTO) 0 % (0-1); EOSINOPHILS % (AUTO) 1 % (1-7); LYMPHOCYTES # (AUTO) 1.39 x10^3/uL (1-3.4); LYMPHOCYTES % (AUTO) 19 % (22-44); MD NO; MEAN CORPUSCULAR HEMOGLOBIN 31.8 pg (27.5-34.5); MEAN CORPUSCULAR HGB CONC 33.7 g/dL (33.2-36.2); MEAN CORPUSCULAR VOLUME 94.2 fL (81-97); MEAN PLATELET VOLUME 8.3 fL (7.4-10.4); MONOCYTES # (AUTO) 0.81 x10^3/uL (0.2-0.8); MONOCYTES % (AUTO) 11 % (2-9); NEUTROPHILS # (AUTO) 5.11 x10^3/uL (1.8-6.8); NEUTROPHILS % (AUTO) 69 % (42-75); PLATELET COUNT 175 x10^3/uL (130-400); RED BLOOD COUNT 2.83 x10^6/uL (4.38-5.82); RED CELL DISTRIBUTION WIDTH 19.4 % (9.4-14.8)
[2018-05-05 04:20] LABS: ANION GAP 6 mmol/L (5-15); CALCIUM 7.7 mg/dL (8.5-10.1); CHLORIDE 96 mmol/L (98-107)
[2018-05-05] MEDS ORDERED: INSULIN REGULAR 100 UNITS/ML, 3ML VIAL IVPush ONE (05:00)
[2018-05-05] MEDS ORDERED: SODIUM POLYSTYRENE SULFONATE ORAL SUSP PO ONE (05:00)
[2018-05-05] MEDS ORDERED: DEXTROSE 50%, 50ML SYRINGE IVPush ONE (05:00)
[2018-05-05] MEDS: CARVEDILOL 6.25 MG TABLET PO SCH ×2 (05:52→16:38)
[2018-05-05] MEDS: SODIUM CHLORIDE 0.9% 1,000 ML IV SCH (07:00)
[2018-05-05 07:32] VITALS: BP 96/56
[2018-05-05] MEDS: LISINOPRIL 5 MG TABLET PO SCH (09:31)
[2018-05-05] MEDS: MIDODRINE 5 MG TABLET PO SCH ×3 (09:31→20:14)
[2018-05-05] MEDS: APIXABAN 5 MG TABLET PO SCH ×2 (09:31→20:14)
[2018-05-05] MEDS: DIGOXIN 0.125 MG TABLET PO SCH (09:32)
[2018-05-05] MEDS: TAMSULOSIN 0.4 MG CAP.ER.24H PO SCH (09:32)
[2018-05-05] MEDS: AMIODARONE 200 MG TABLET PO SCH (09:32)
[2018-05-05 09:41] LABS: ANION GAP 4 mmol/L (5-15); CALCIUM 7.7 mg/dL (8.5-10.1); CHLORIDE 98 mmol/L (98-107); CREATININE 2.44 mg/dL (0.7-1.3)
[2018-05-05] MEDS: ALBUTEROL/IPRATROPIUM 2.5MG/0.5MG, 3 ML NPPB SCH ×2 (10:40→21:00)
[2018-05-05 14:07] VITALS: BP 107/50
[2018-05-05 16:39] VITALS: BP 115/62
[2018-05-05] MEDS: MELATONIN 5 MG TABLET PO SCH (20:14)
[2018-05-05] MEDS: ATORVASTATIN 40 MG TABLET PO SCH (20:14)
[2018-05-05 21:59] VITALS: BP 119/62
[2018-05-06 02:02] VITALS: BP 119/53
[2018-05-06] MEDS: SODIUM CHLORIDE 0.9% 1,000 ML IV SCH (03:41)
[2018-05-06 05:52] LABS: BASOPHILS # (AUTO) 0.02 x10^3/uL (0-0.1); BASOPHILS % (AUTO) 0 % (0-1); EOSINOPHILS # (AUTO) 0.15 x10^3/uL (0-0.4); EOSINOPHILS % (AUTO) 2 % (1-7); LYMPHOCYTES # (AUTO) 1.38 x10^3/uL (1-3.4); LYMPHOCYTES % (AUTO) 18 % (22-44); MD NO; MEAN CORPUSCULAR HEMOGLOBIN 30.9 pg (27.5-34.5); MEAN CORPUSCULAR VOLUME 93.6 fL (81-97); MEAN PLATELET VOLUME 8.5 fL (7.4-10.4); MONOCYTES % (AUTO) 12 % (2-9); NEUTROPHILS # (AUTO) 5.28 x10^3/uL (1.8-6.8); NEUTROPHILS % (AUTO) 68 % (42-75); PLATELET COUNT 180 x10^3/uL (130-400); RED BLOOD COUNT 2.88 x10^6/uL (4.38-5.82); RED CELL DISTRIBUTION WIDTH 19.5 % (9.4-14.8)
[2018-05-06] MEDS: CARVEDILOL 6.25 MG TABLET PO SCH ×2 (05:58→18:21)
[2018-05-06 06:00] LABS: ALBUMIN 2.5 g/dL (3.4-5.0); ANION GAP 8 mmol/L (5-15); CALCIUM 7.8 mg/dL (8.5-10.1); CHLORIDE 98 mmol/L (98-107)
[2018-05-06 07:00] VITALS: BP 105/65
[2018-05-06] MEDS: APIXABAN 5 MG TABLET PO SCH (08:49)
[2018-05-06] MEDS: TAMSULOSIN 0.4 MG CAP.ER.24H PO SCH (08:49)
[2018-05-06] MEDS: MIDODRINE 5 MG TABLET PO SCH ×3 (08:49→20:28)
[2018-05-06] MEDS: DIGOXIN 0.125 MG TABLET PO SCH (08:49)
[2018-05-06] MEDS ORDERED: FUROSEMIDE 40 MG/4 ML IV ONE (09:00)
[2018-05-06] MEDS: ALBUTEROL/IPRATROPIUM 2.5MG/0.5MG, 3 ML NPPB SCH ×2 (10:46→21:20)
[2018-05-06 13:55] VITALS: BP 130/62
[2018-05-06 18:21] VITALS: BP 118/55
[2018-05-06 18:56] VITALS: BP 119/60
[2018-05-06] MEDS: MELATONIN 5 MG TABLET PO SCH (20:29)
[2018-05-06] MEDS: ATORVASTATIN 40 MG TABLET PO SCH (20:29)
[2018-05-06] MEDS: APIXABAN 2.5 MG TABLET PO SCH (20:29)
[2018-05-07 01:41] VITALS: BP 122/51
[2018-05-07] MEDS: CARVEDILOL 6.25 MG TABLET PO SCH ×2 (05:27→17:02)
[2018-05-07 06:03] LABS: BASOPHILS # (AUTO) 0.04 x10^3/uL (0-0.1); BASOPHILS % (AUTO) 1 % (0-1); EOSINOPHILS # (AUTO) 0.21 x10^3/uL (0-0.4); EOSINOPHILS % (AUTO) 3 % (1-7); LYMPHOCYTES % (AUTO) 17 % (22-44); MD NO; MEAN CORPUSCULAR HEMOGLOBIN 31.6 pg (27.5-34.5); MEAN CORPUSCULAR HGB CONC 33.6 g/dL (33.2-36.2); MEAN CORPUSCULAR VOLUME 94.2 fL (81-97); MEAN PLATELET VOLUME 8.6 fL (7.4-10.4); MONOCYTES # (AUTO) 0.85 x10^3/uL (0.2-0.8); MONOCYTES % (AUTO) 11 % (2-9); NEUTROPHILS # (AUTO) 5.24 x10^3/uL (1.8-6.8); NEUTROPHILS % (AUTO) 69 % (42-75); PLATELET COUNT 174 x10^3/uL (130-400); RED BLOOD COUNT 2.87 x10^6/uL (4.38-5.82); RED CELL DISTRIBUTION WIDTH 19.1 % (9.4-14.8)
[2018-05-07 06:14] LABS: ALBUMIN 2.6 g/dL (3.4-5.0); ANION GAP 6 mmol/L (5-15); CALCIUM 8.1 mg/dL (8.5-10.1); CHLORIDE 97 mmol/L (98-107); CREATININE 2.32 mg/dL (0.7-1.3)
[2018-05-07 06:38] VITALS: BP 125/78
[2018-05-07] MEDS: ALBUTEROL/IPRATROPIUM 2.5MG/0.5MG, 3 ML NPPB SCH ×3 (07:47→20:30)
[2018-05-07] MEDS: MIDODRINE 5 MG TABLET PO SCH ×3 (08:24→19:41)
[2018-05-07] MEDS: APIXABAN 2.5 MG TABLET PO SCH ×2 (08:25→19:41)
[2018-05-07] MEDS: DIGOXIN 0.125 MG TABLET PO SCH (08:25)
[2018-05-07] MEDS: TAMSULOSIN 0.4 MG CAP.ER.24H PO SCH (08:25)
[2018-05-07 10:42] VITALS: BP 132/69
[2018-05-07] MEDS: FUROSEMIDE 40 MG/4 ML IV SCH ×2 (10:43→17:02)
[2018-05-07 13:02] VITALS: BP 123/67
[2018-05-07 19:31] VITALS: BP 120/61
[2018-05-07] MEDS: TEMAZEPAM 15 MG CAPSULE PO PRN (19:40)
[2018-05-07] MEDS: ATORVASTATIN 40 MG TABLET PO SCH (19:40)
[2018-05-07] MEDS: MELATONIN 5 MG TABLET PO SCH (19:41)
[2018-05-08 01:02] VITALS: BP 119/62
[2018-05-08 05:46] LABS: BASOPHILS # (AUTO) 0.03 x10^3/uL (0-0.1); BASOPHILS % (AUTO) 0 % (0-1); EOSINOPHILS % (AUTO) 3 % (1-7); LYMPHOCYTES # (AUTO) 1.51 x10^3/uL (1-3.4); LYMPHOCYTES % (AUTO) 20 % (22-44); MD NO; MEAN CORPUSCULAR HEMOGLOBIN 31.4 pg (27.5-34.5); MEAN CORPUSCULAR HGB CONC 33.6 g/dL (33.2-36.2); MEAN CORPUSCULAR VOLUME 93.4 fL (81-97); MEAN PLATELET VOLUME 7.9 fL (7.4-10.4); MONOCYTES # (AUTO) 0.78 x10^3/uL (0.2-0.8); MONOCYTES % (AUTO) 11 % (2-9); NEUTROPHILS # (AUTO) 4.92 x10^3/uL (1.8-6.8); NEUTROPHILS % (AUTO) 66 % (42-75); PLATELET COUNT 176 x10^3/uL (130-400); RED BLOOD COUNT 2.79 x10^6/uL (4.38-5.82); RED CELL DISTRIBUTION WIDTH 19.3 % (9.4-14.8)
[2018-05-08 05:57] LABS: ANION GAP 6 mmol/L (5-15); CHLORIDE 98 mmol/L (98-107); CREATININE 2.39 mg/dL (0.7-1.3)
[2018-05-08 06:42] VITALS: BP 119/63
[2018-05-08] MEDS: ALBUTEROL/IPRATROPIUM 2.5MG/0.5MG, 3 ML NPPB SCH ×2 (07:26→20:30)
[2018-05-08] MEDS: TAMSULOSIN 0.4 MG CAP.ER.24H PO SCH (09:38)
[2018-05-08] MEDS: CARVEDILOL 6.25 MG TABLET PO SCH ×2 (09:38→17:35)
[2018-05-08] MEDS: FUROSEMIDE 40 MG/4 ML IV SCH ×2 (09:38→17:35)
[2018-05-08] MEDS: MIDODRINE 5 MG TABLET PO SCH ×3 (09:38→21:28)
[2018-05-08] MEDS: DIGOXIN 0.125 MG TABLET PO SCH (09:38)
[2018-05-08] MEDS: APIXABAN 2.5 MG TABLET PO SCH ×2 (09:38→21:29)
[2018-05-08 12:42] VITALS: BP 119/72
[2018-05-08 18:41] VITALS: BP 127/54
[2018-05-08] MEDS: MELATONIN 5 MG TABLET PO SCH (21:00)
[2018-05-08] MEDS: TEMAZEPAM 15 MG CAPSULE PO PRN (21:29)
[2018-05-08] MEDS: ATORVASTATIN 40 MG TABLET PO SCH (21:29)
[2018-05-09 01:30] VITALS: BP 104/54
[2018-05-09] MEDS: CARVEDILOL 6.25 MG TABLET PO SCH ×2 (04:59→18:17)
[2018-05-09 05:51] LABS: BASOPHILS # (AUTO) 0.02 x10^3/uL (0-0.1); BASOPHILS % (AUTO) 0 % (0-1); EOSINOPHILS # (AUTO) 0.21 x10^3/uL (0-0.4); EOSINOPHILS % (AUTO) 3 % (1-7); LYMPHOCYTES # (AUTO) 1.14 x10^3/uL (1-3.4); LYMPHOCYTES % (AUTO) 18 % (22-44); MD NO; MEAN CORPUSCULAR HEMOGLOBIN 31.8 pg (27.5-34.5); MEAN CORPUSCULAR VOLUME 93.6 fL (81-97); MONOCYTES # (AUTO) 0.65 x10^3/uL (0.2-0.8); MONOCYTES % (AUTO) 10 % (2-9); NEUTROPHILS # (AUTO) 4.24 x10^3/uL (1.8-6.8); NEUTROPHILS % (AUTO) 68 % (42-75); PLATELET COUNT 148 x10^3/uL (130-400); RED BLOOD COUNT 2.83 x10^6/uL (4.38-5.82)
[2018-05-09 06:03] LABS: CHLORIDE 99 mmol/L (98-107)
[2018-05-09 06:11] LABS: ANION GAP 7 mmol/L (5-15); CALCIUM 7.9 mg/dL (8.5-10.1); CREATININE 2.16 mg/dL (0.7-1.3)
[2018-05-09] MEDS: FUROSEMIDE 40 MG/4 ML IV SCH (06:44)
[2018-05-09 07:39] VITALS: BP 116/55
[2018-05-09] MEDS: ALBUTEROL/IPRATROPIUM 2.5MG/0.5MG, 3 ML NPPB SCH ×2 (09:00→18:35)
[2018-05-09] MEDS: DIGOXIN 0.125 MG TABLET PO SCH (09:33)
[2018-05-09] MEDS: APIXABAN 2.5 MG TABLET PO SCH ×2 (09:33→21:35)
[2018-05-09] MEDS: TAMSULOSIN 0.4 MG CAP.ER.24H PO SCH (09:33)
[2018-05-09] MEDS: MIDODRINE 5 MG TABLET PO SCH ×3 (09:33→21:36)
[2018-05-09 13:19] VITALS: BP 138/72
[2018-05-09] MEDS ORDERED: FUROSEMIDE 80 MG TABLET PO SCH (17:00)
[2018-05-09 19:53] VITALS: BP 130/71
[2018-05-09] MEDS: ATORVASTATIN 40 MG TABLET PO SCH (21:35)
[2018-05-09] MEDS: MELATONIN 5 MG TABLET PO SCH (21:36)
[2018-05-09] MEDS: TEMAZEPAM 15 MG CAPSULE PO PRN (21:39)
[2018-05-10 01:46] VITALS: BP 115/61
[2018-05-10] MEDS: CARVEDILOL 6.25 MG TABLET PO SCH ×2 (05:24→17:05)
[2018-05-10 05:46] LABS: BASOPHILS # (AUTO) 0.02 x10^3/uL (0-0.1); BASOPHILS % (AUTO) 0 % (0-1); EOSINOPHILS # (AUTO) 0.24 x10^3/uL (0-0.4); EOSINOPHILS % (AUTO) 4 % (1-7); LYMPHOCYTES # (AUTO) 1.29 x10^3/uL (1-3.4); LYMPHOCYTES % (AUTO) 19 % (22-44); MD NO; MEAN CORPUSCULAR HGB CONC 34.3 g/dL (33.2-36.2); MEAN CORPUSCULAR VOLUME 93.5 fL (81-97); MEAN PLATELET VOLUME 8.1 fL (7.4-10.4); MONOCYTES # (AUTO) 0.63 x10^3/uL (0.2-0.8); MONOCYTES % (AUTO) 9 % (2-9); NEUTROPHILS # (AUTO) 4.48 x10^3/uL (1.8-6.8); NEUTROPHILS % (AUTO) 67 % (42-75); PLATELET COUNT 165 x10^3/uL (130-400); RED BLOOD COUNT 2.83 x10^6/uL (4.38-5.82); RED CELL DISTRIBUTION WIDTH 19.5 % (9.4-14.8)
[2018-05-10 05:56] LABS: ALBUMIN 2.6 g/dL (3.4-5.0); ANION GAP 6 mmol/L (5-15); CALCIUM 7.9 mg/dL (8.5-10.1); CHLORIDE 98 mmol/L (98-107); CREATININE 1.99 mg/dL (0.7-1.3)
[2018-05-10 07:50] VITALS: BP 111/67
[2018-05-10] MEDS: ALBUTEROL/IPRATROPIUM 2.5MG/0.5MG, 3 ML NPPB SCH ×2 (09:00→21:10)
[2018-05-10] MEDS: TAMSULOSIN 0.4 MG CAP.ER.24H PO SCH (09:22)
[2018-05-10] MEDS: MIDODRINE 5 MG TABLET PO SCH ×3 (09:22→22:12)
[2018-05-10] MEDS: APIXABAN 2.5 MG TABLET PO SCH ×2 (09:22→22:12)
[2018-05-10] MEDS: DIGOXIN 0.125 MG TABLET PO SCH (09:22)
[2018-05-10] MEDS: FUROSEMIDE 20 MG TABLET PO SCH ×2 (09:25→17:05)
[2018-05-10] MEDS: FUROSEMIDE 20 MG/2 ML IV SCH (09:39)
[2018-05-10 13:34] VITALS: BP 119/73
[2018-05-10] MEDS ORDERED: FUROSEMIDE 80 MG TABLET PO SCH (17:00)
[2018-05-10 20:15] VITALS: BP 132/77
[2018-05-10] MEDS: MELATONIN 5 MG TABLET PO SCH (21:00)
[2018-05-10] MEDS: ATORVASTATIN 40 MG TABLET PO SCH (22:12)
[2018-05-10] MEDS: TEMAZEPAM 15 MG CAPSULE PO PRN (22:16)
[2018-05-11 02:10] VITALS: BP 106/61
[2018-05-11 05:18] LABS: BASOPHILS # (AUTO) 0.02 x10^3/uL (0-0.1); BASOPHILS % (AUTO) 0 % (0-1); EOSINOPHILS # (AUTO) 0.19 x10^3/uL (0-0.4); EOSINOPHILS % (AUTO) 4 % (1-7); LYMPHOCYTES # (AUTO) 1.31 x10^3/uL (1-3.4); LYMPHOCYTES % (AUTO) 24 % (22-44); MD NO; MEAN CORPUSCULAR HGB CONC 32.8 g/dL (33.2-36.2); MEAN CORPUSCULAR VOLUME 94.3 fL (81-97); MEAN PLATELET VOLUME 8.4 fL (7.4-10.4); MONOCYTES % (AUTO) 11 % (2-9); NEUTROPHILS % (AUTO) 62 % (42-75); PLATELET COUNT 146 x10^3/uL (130-400); RED BLOOD COUNT 2.61 x10^6/uL (4.38-5.82); RED CELL DISTRIBUTION WIDTH 19.7 % (9.4-14.8)
[2018-05-11 05:21] LABS: ANION GAP 4 mmol/L (5-15); CHLORIDE 100 mmol/L (98-107)
[2018-05-11 05:22] LABS: CREATININE 1.73 mg/dL (0.7-1.3)
[2018-05-11 05:37] VITALS: BP 125/70
[2018-05-11] MEDS: CARVEDILOL 6.25 MG TABLET PO SCH (05:38)
[2018-05-11] MEDS: MIDODRINE 5 MG TABLET PO SCH ×2 (08:31→16:00)
[2018-05-11] MEDS: TAMSULOSIN 0.4 MG CAP.ER.24H PO SCH (08:31)
[2018-05-11] MEDS: FUROSEMIDE 20 MG TABLET PO SCH (08:31)
[2018-05-11] MEDS: APIXABAN 2.5 MG TABLET PO SCH (08:32)
[2018-05-11] MEDS: DIGOXIN 0.125 MG TABLET PO SCH (08:32)
[2018-05-11 09:15] VITALS: BP 135/67
[2018-05-11 13:10] VITALS: BP 137/75
[2018-05-11] MEDS ORDERED: IPRA3AMP30 NPPB (15:00)
[2018-05-11] MEDS ORDERED: DIGO125T PO (15:00)
[2018-05-11] MEDS ORDERED: BISA10SU54 PR (15:00)
[2018-05-11] MEDS ORDERED: MELA5TAB19 PO (15:00)
[2018-05-11] MEDS ORDERED: APIX2.5T PO (15:00)
[2018-05-11] MEDS ORDERED: ACET325T14 PO (15:00)
[2018-05-11] MEDS ORDERED: MIDO5TAB9 PO (15:00)
[2018-05-11] MEDS ORDERED: FURO20TA3 PO (15:00)
[2018-05-11] MEDS ORDERED: ALBUTEROL/IPRATROPIUM 2.5MG/0.5MG, 3 ML NPPB SCH (21:00)
== END 2018-05-11 18:40 | DRG 682 ==
LOC: ED 14:33 → EDIP 16:20 → 5SO 17:12
PROVIDERS: ADMIT Hospitalist; ATTEND Hospitalist
DX: N17.0 Acute kidney failure with tubular necrosis (principal); I50.43 Acute on chronic combined systolic (congestive) and diastolic (congestive) heart failure; I13.0 Hypertensive heart and chronic kidney disease with heart failure and stage 1 through stage 4 chronic kidney disease, or unspecified chronic kidney disease; D68.69 Other thrombophilia; E87.1 Hypo-osmolality and hyponatremia; I42.9 Cardiomyopathy, unspecified; I48.2 Chronic atrial fibrillation; I95.9 Hypotension, unspecified; D64.9 Anemia, unspecified; E78.5 Hyperlipidemia, unspecified; E86.1 Hypovolemia; E87.5 Hyperkalemia; I25.10 Atherosclerotic heart disease of native coronary artery without angina pectoris; I27.20 Pulmonary hypertension, unspecified; I34.0 Nonrheumatic mitral (valve) insufficiency; I73.9 Peripheral vascular disease, unspecified; N18.9 Chronic kidney disease, unspecified; N40.1 Benign prostatic hyperplasia with lower urinary tract symptoms; R33.8 Other retention of urine; Z79.01 Long term (current) use of anticoagulants; Z95.828 Presence of other vascular implants and grafts
CPT/HCPCS: 36415; 70450; 71045; 71250; 76770; 80048; 80053; 80061; 80069; 80162; 81001; 82272; 82436; 82533; 82962; 83036; 83735; 83880; 83930; 83935; 84100; 84133; 84300; 84439; 84443; 84484; 84550; 85014; 85018; 85025; 85610; 85730; 87040; 87324; 93005; 93970; 94640; 96360; 99285; C8929; G0378; J1815; J1940; J7620; Q9957; J0282; J1160; J7030; J7050; J7060